=== PATIENT | male | born 1980 | race Caucasian/White ===

== ENCOUNTER 2016-05-23 00:38 | Day surgery (SDC) | payer OTHER ==
[~2016-05-23] VITALS: Ht 172.7 cm; Wt 104.5 kg
[~2016-05-23 00:38] MED LIST: HYDR-4003 PO; NAPR500T PO
[2016-05-23] MEDS ORDERED: 0.9% Sodium Chloride 1,000 ML IV SCH (06:00)
[2016-05-23] MEDS ORDERED: fentaNYL-PF 50 mCg/mL 2 mL Inj IVPUSH PRN (06:00)
[2016-05-23] MEDS ORDERED: Sodium Chloride LOK Flush 10 mL Syringe IV PRN (06:00)
[2016-05-23 08:36] VITALS: BP 130/78; PULSE 66; RESP 12; O2SAT 95
[2016-05-23 09:29] VITALS: BP 134/75; PULSE 77; RESP 16; O2SAT 94
[2016-05-23 09:39] VITALS: BP 128/73; PULSE 68; RESP 16; O2SAT 96
--- NOTE | 2016-05-23 09:49 | ENDO ---
[address] [address] ENDOSCOPY PROCEDURE PATIENT: TANYA QUIROGA : 1980 MR#: [id number] ADMIT: 05/23/2016 JOB ID: [id number] DATE OF SERVICE: 05/23/2016 TYPE OF OPERATION: Colonoscopy with biopsy. PREOPERATIVE DIAGNOSIS(ES): 1. Blood in stool. 2. Diarrhea. POSTOPERATIVE DIAGNOSIS(ES): 1. There were two cecal polyps measuring 3 mm in size, removed by cold biopsy forceps. 2. Otherwise normal colonoscopy, status post biopsy to the terminal ileum and random colon. ANESTHESIA: Fentanyl 150 mcg, Versed 7 mg IV administered. COMPLICATIONS: None. BLOOD LOSS: Minimal. DESCRIPTION OF PROCEDURE: After risks and benefits explained to the patient, informed consent was obtained. After anesthesia administered, colonoscope was then inserted from the rectum to the terminal ileum. Mucosa carefully examined. Prep of the patient was fair. After procedure done, scope withdrawn and procedure terminated. FINDINGS: Upon inspection of the anus, no masses, hemorrhoids, ulcers, or fissures that were seen. Throughout the entire examination, there were two cecal polyps measuring 3 mm in size, removed by cold biopsy forceps. Otherwise, the colonoscopy appeared normal. Biopsies taken of the terminal ileum and random colon to rule out inflammatory bowel disease and microscopic colitis. Retroflexion was normal. IMPRESSIONS: 1. Two cecal polyps measuring 3 mm in size, removed by cold biopsy forceps. 2. Otherwise normal colonoscopy, status post biopsy. RECOMMENDATIONS: 1. Await pathology results. 2. Follow up with Bozena Petit PA-C in GI clinic. 3. If tubular adenoma, then next colonoscopy should be in five years.
[2016-05-23 09:50] VITALS: BP 120/83; PULSE 69; RESP 16; O2SAT 96
--- NOTE | 2016-05-24 14:19 | PATH ---
SURGICAL PATHOLOGY Attending Physician:Maninder Redmond MD CASE STATUS: Signed Out PATIENT NAME: TANYA QUIROGA PID: [id number] : 1980 DATE COLLECTED:05/23/2016 16:23 SPECIMEN: 1: Ileum, Biopsy 2: Colon, Biopsy 3: Colon, Biopsy CLINICAL HISTORY: 1). TERMINAL ILEUM 2). RANDOM COLON 3). CECAL POLYP X2 FINAL DIAGNOSIS: 1.TERMINAL ILEUM BIOPSY: NORMAL TERMINAL ILEUM MUCOSA. No inflammation identified. Negative for dysplasia and malignancy. 2.RANDOM COLON BIOPSY: COLONIC MUCOSA WITH NO DIAGNOSTIC ALTERATIONS. Negative for inflammation, dysplasia and malignancy. 3.CECAL POLYPS: SESSILE SERRATED ADENOMAS, 2. ICD10 CODE D12.0 GROSS DESCRIPTION: The specimen is received in three formalin filled containers labeled with the patient's name. 1). The specimen is sublabeled " TI " and consists of 2 portions of tissue which aggregate to 0.3 x 0.3 with 0.2 CM. The specimen is entirely submitted in cassette 1A. 2). The specimen is sublabeled "random colon" and consists of multiple portions of tissue which aggregate to 1.0 x 0.5 x 0.3 CM. The specimen is entirely submitted in cassette 2A. 3). The specimen is sublabeled "cecal polyp" and consists of multiple portions of tissue which aggregate to 0.3 x 0.3 x 0.2 CM. The specimen is entirely submitted in cassette 3A. 05/23/2016 DAC MICRO DESCRIPTION: See diagnosis. ICD-9 CODES: CPT CODES: 1: 87641 2: 92990 3: 27185 Electronically Signed Out Lucrecia Thornton MD [facility] Pathology [facility] [address], [place] [address] Technical component performed at [facility], [address] [place] [address] Ave[address], [place], [address]
== END 2016-05-23 23:59 | disposition home or self-care (01) ==
LOC: END 00:38
PROVIDERS: ATTEND Internal Medicine Gastroenterology
DX: D12.0 Benign neoplasm of cecum (principal)
CPT/HCPCS: 45380; 88305; G0500; J2250; J3010; J7030